=== PATIENT | male | born 1985 ===

== ENCOUNTER → 2024-12-28 14:14 | Outpatient (CLI) | payer OTHER, SELFPAY ==
[2024-12-31 17:08] LABS: IgA 331 mg/dL (90-386); t-Transglutaminase IgA <2 U/mL (0-3)
== END ==
PROVIDERS: Referring Provider Chiropractor; Visit Provider Chiropractor
DX: K90.0 Celiac disease (principal)
CPT/HCPCS: 36415; 82784; 83516